=== PATIENT | female | born 1960 | race Caucasian/White ===

== ENCOUNTER 2016-11-05 14:29 | Emergency (ER) | payer OTHER ==
[2016-11-05 14:51] VITALS: BP 120/86; PULSE 100; RESP 20; TEMP 98.6; O2SAT 96
--- NOTE | 2016-11-05 15:48 | EDPHY ---
H & P Time Seen by Provider: 11/05/16 15:14 HPI/ROS: CHIEF COMPLAINT: right calf pain HISTORY OF PRESENT ILLNESS: 56-year-old female presents emergency department complaining of right calf pain after a fall while skiing today. Patient states she had a twisting fall and felt a strong pulling in the middle of her right calf. Patient is unable to bear weight due to pain. Patient states she feels like there is a baseball in her calf. She denies previous injuries like this. No numbness or tingling to her legs, no head strike, no neck pain, denies other complaints. Smoking Status: Never smoked Physical Exam: GEN: Awake, alert, oriented, no acute distress RESP: nl resp effort MSK: Right knee with full flexion and extension, full range of motion of right ankle, right posterior mid calf tenderness, firmness, swelling. Achilles tendon intact, plantar flexion with calf squeeze. 2+ pedal pulses, sensation intact to light touch SKIN: No break in skin Constitutional: Initial Vital Signs Temperature (C) 37 C 11/05/16 14:48 Heart Rate 100 11/05/16 14:48 Respiratory Rate 20 11/05/16 14:48 Blood Pressure 120/86 H 11/05/16 14:48 O2 Sat (%) 96 11/05/16 14:48 O2 Delivery Mode Room Air Allergies/Adverse Reactions: No Known Allergies Allergy (Unverified 11/05/16 14:48) Home Medications: Medication Instructions Recorded Triamterene 11/05/16 MDM/Departure - Depart Disposition: Home, Routine, Self-Care Clinical Impression: Gastrocnemius muscle tear Qualifiers: Encounter type: initial encounter Laterality: right Qualifier Code: (S86.811A) Strain of other muscle(s) and tendon(s) at lower leg level, right leg, initial encounter Condition: Good Instructions: Leg Sprain (ED), Tendon Rupture (ED) Additional Instructions: Rest, ice, elevate, take 600mg of ibuprofen every 8 hours with food for 3-5 days as needed for pain and swelling. Wear walking boot, use crutches for ambulation. Follow up with orthopedist in the next 3-5 days. Call to schedule this appointment tomorrow. Return to the emergency department for any numbness , tingling, discoloration of you limb or other concerns. Referrals: Shreyas Barriga MD [Medical Doctor] - As per Instructions (Orthopedist on-call)
== END 2016-11-05 16:06 | disposition home or self-care (01) ==
DX: S86.811A Strain of other muscle(s) and tendon(s) at lower leg level, right leg, initial encounter (principal); V00.321A Fall from snow-skis, initial encounter; Y92.39 Other specified sports and athletic area as the place of occurrence of the external cause; Y93.23 Activity, snow (alpine) (downhill) skiing, snowboarding, sledding, tobogganing and snow tubing

== ENCOUNTER → 2016-12-12 | Outpatient (CLI) | payer OTHER | LOC: FIMAGING 07:53 | DX: Z12.31 Encounter for screening mammogram for malignant neoplasm of breast (principal) | CPT/HCPCS: G0202 ==